=== PATIENT | female | born 1995 | race Hispanic/Latino ===

== ENCOUNTER 2025-05-17 09:11 | Emergency (ER) | payer OTHER ==
[~2025-05-17] VITALS: Ht 162.6 cm; Wt 50.8 kg
[2025-05-17 09:23] VITALS: PULSE 86; RESP 18; TEMP 97.9
[2025-05-17 10:03] VITALS: BP 109/67; O2SAT 100
== END 2025-05-17 09:51 | disposition home or self-care (01) ==
LOC: ER 09:13
DX: B37.31 Acute candidiasis of vulva and vagina (principal)
CPT/HCPCS: 99282